=== PATIENT | female | born 2000 | race Caucasian/White ===

== ENCOUNTER 2021-06-18 17:22 | Emergency (ER) | payer OTHER ==
[2021-06-18] MEDS ORDERED: NAPROXEN500 MG PO (18:39)
== END 2021-06-18 18:57 | disposition home or self-care (01) ==
LOC: ER1 17:22
DX: M54.50 Low back pain, unspecified (principal); K08.89 Other specified disorders of teeth and supporting structures; Z90.49 Acquired absence of other specified parts of digestive tract
CPT/HCPCS: 96372; 99283; J1885

== ENCOUNTER → 2021-09-01 | Emergency (ER) | payer OTHER ==
[~2021-09-01] MED LIST: AMOXICILLIN875 MG PO; NAPROXEN500 MG PO
== END | disposition home or self-care (01) ==
LOC: ER1 19:09
DX: O99.612 Diseases of the digestive system complicating pregnancy, second trimester (principal); K08.89 Other specified disorders of teeth and supporting structures; F17.200 Nicotine dependence, unspecified, uncomplicated; Z3A.13 13 weeks gestation of pregnancy
CPT/HCPCS: 99282

== ENCOUNTER 2022-01-17 21:17 | Emergency (ER) | payer OTHER ==
[2022-01-17] MEDS ORDERED: AMOXICILLIN500 M1 PO (22:07)
[2022-01-17] MEDS ORDERED: XYLOCAINE VISC100 ML EXT (22:10)
== END 2022-01-17 22:15 | disposition home or self-care (01) ==
LOC: ER1 21:17
DX: O99.613 Diseases of the digestive system complicating pregnancy, third trimester (principal); K02.9 Dental caries, unspecified; Z3A.32 32 weeks gestation of pregnancy
CPT/HCPCS: 99282